=== PATIENT | male | born 1965 | race Caucasian/White ===

== ENCOUNTER → 2016-11-16 | Outpatient (CLI) | payer OTHER ==
[~2016-11-16] MED LIST: GLUCTAB7; KFL500 PO; MULT-513 PO; OMEP20CA9 PO; SULF800T23 PO
--- NOTE | 2016-11-16 08:34 | DIAGNOSTIC IMAGING REPORT ---
(BARIUM SWALLOW) ESOPHAGUS CLINICAL HISTORY: 51 years-old Male presenting with DYSPHAGEA. TECHNIQUE: A standard air contrast barium esophagram is performed. Multiple spot images of the esophagus are acquired both upright and prone. COMPARISON: 02/01/2008. FINDINGS: The patient was able to ingest barium and the barium pill without difficulty. Normal esophageal mucosal pattern. No evidence of intrinsic or extrinsic mass lesion. Deep penetration to the level of the vocal folds. This did not elicit a spontaneous cough. The gastroesophageal junction distended normally. Evidence of gastroesophageal reflux. Fluoroscopy time: 1 minute. Fluoroscopic images: 25. IMPRESSION: 1. Gastroesophageal reflux. 2. Silent deep penetration. Further evaluation with dedicated barium swallow study recommended. Electronically signed by: Loco Marina M.D. 11/16/2016 7:50 AM Dictated Date/Time: 11/16/2016 7:48 AM
== END | disposition home or self-care (01) ==
LOC: C.RAD 07:16
PROVIDERS: ATTEND Nurse Practitioner Family
DX: R13.10 Dysphagia, unspecified (principal); K21.9 Gastro-esophageal reflux disease without esophagitis; R93.3 Abnormal findings on diagnostic imaging of other parts of digestive tract

== ENCOUNTER 2019-12-21 01:50 | Observation (INO) ==
[2019-12-21] MEDS ORDERED: KETOROLAC TROMETHAMINE 15 MG/ML VIAL IV STA (02:11)
--- NOTE | 2019-12-21 02:13 | Emergency Department Note ---
History of Present Illness General Chief complaint: Chest/Rib Injury Stated complaint: SHARP PAIN IN ABD/RIB Time Seen by Provider: 12/21/19 01:59 Source: patient Mode of arrival: ambulatory Limitations: no limitations History of Present Illness Maximum Pain Intensity: 7 This patient is a 54-year-old male who presents to the emergency department for evaluation of right-sided rib pain. The patient reports that his pain started about 1 day ago and gradually worsened. He reports the pain is in the right ribs and he states he has only mild pain at rest rated a 1/10. He states that his pain worsened significantly with a deep breath, certain movements and laying back flat. He rates his discomfort a 7/10 at its worst. He took Excedrin prior to arrival which did help slightly. He denies any shortness of breath, fevers, cough, nausea or vomiting. He is not a smoker and denies recent travel. He denies any leg pain or calf swelling. He denies any history of similar symptoms. He denies any personal or family history of blood clots. Home Medications Home Medications Medication Instructions Recorded Confirmed Type glucosamine-chondroitin [Osteo 1 tab PO DAILY 12/21/19 12/21/19 History Bi-Flex] multivitamin 1 tab PO DAILY 12/21/19 12/21/19 History omeprazole 20 mg PO DAILY 12/21/19 12/21/19 History Allergies Allergy/AdvReac Type Severity Reaction Status Date / Time No Known Allergies Allergy Verified 12/21/19 02:26 Past Med/Surg History Medical History No significant past medical history Surgical History History of appendectomy Social History Smoking Status: Never smoker Preferred Language: Ethiopian Feels Safe at Home: Yes Review of Systems A total of 10 systems reviewed and were otherwise negative Physical Exam Vital Signs Vital Signs - 24 hr 12/21/19 01:55 12/21/19 02:14 12/21/19 02:22 Temperature 37.2 C Temperature Source Oral Pulse Rate 83 79 Pulse Rate from SpO2 Sensor 80 Pulse Rhythm Regular Pulse Strength Normal Respiratory Rate 20 25 H Respiratory Effort / Characteristics Non-Labored Spontaneous Respiratory Depth Normal Respiratory Pattern Regular Blood Pressure 153/83 H 130/85 Blood Pressure Mean 106 92 Blood Pressure Position Sitting Pulse Oximetry 93 95 95 Oxygen Delivery Method Room Air Room Air Sepsis Recent Fever Within 48 Hours No Sepsis New/Unexplained Change in Mental Status No Sepsis Action Taken by Nursing No Action Required 12/21/19 02:31 12/21/19 03:30 12/21/19 04:00 Temperature Temperature Source Pulse Rate 89 78 74 Pulse Rate from SpO2 Sensor 89 77 75 Pulse Rhythm Pulse Strength Respiratory Rate 26 H 17 21 Respiratory Effort / Characteristics Respiratory Depth Respiratory Pattern Blood Pressure 136/84 133/85 139/82 Blood Pressure Mean 105 97 95 Blood Pressure Position Pulse Oximetry 96 96 96 Oxygen Delivery Method Sepsis Recent Fever Within 48 Hours Sepsis New/Unexplained Change in Mental Status Sepsis Action Taken by Nursing 12/21/19 05:06 Temperature Temperature Source Pulse Rate 81 Pulse Rate from SpO2 Sensor 79 Pulse Rhythm Pulse Strength Respiratory Rate 24 Respiratory Effort / Characteristics Respiratory Depth Respiratory Pattern Blood Pressure 134/89 Blood Pressure Mean 96 Blood Pressure Position Pulse Oximetry 97 Oxygen Delivery Method Sepsis Recent Fever Within 48 Hours Sepsis New/Unexplained Change in Mental Status Sepsis Action Taken by Nursing VITALS: Vitals are noted on the nurse's note and reviewed by myself. GENERAL: This is a 54-year-old male, in no acute distress, slightly clammy, well-developed well-nourished. SKIN: The skin was without rashes, erythema, edema, or bruising. EARS: External auditory canals clear, tympanic membranes pearly mckinney without erythema or effusion bilaterally. EYES: Pupils equal round and reactive to light and accommodation. MOUTH: Mucous membranes moist. Tonsils are not enlarged. Pharynx without erythema or exudate. NECK: Supple without nuchal rigidity. No lymphadenopathy. HEART: Regular rate and rhythm without murmurs gallops or rubs. LUNGS: Clear to auscultation bilaterally without wheezes, rales or rhonchi. No retractions or accessory muscle use. ABDOMEN: Positive bowel sounds x 4. Soft, nontender to palpation. No guarding or rebound tenderness. MUSCULOSKELETAL: No deformities, no tenderness. Full range of motion throughout. NEURO: Patient was alert and oriented to person place and time. Course Reevaluation(s) Reevaluation #1: Patient was reevaluated and labs discussed. He reports some relief from the Toradol. Reevaluation #2: Patient was reevaluated and findings discussed. He is agreeable to admission. Consultations Consultation #1: Dr. Bruce [facility] hospitalist Administered Medications Heparin Sodium/Dextrose (Heparin Sodium/Dextrose) 25,000 units in 500 mls @ 26 mls/hr IV .[id number] BING; Protocol Stop: 01/20/20 04:14 Last Admin: 12/21/19 04:58 Dose: 1,300 units/hr, 26 mls/hr Documented by: [id number] Cosigned by: [id number] Discontinued Medications Heparin Sodium (Porcine) (Heparin Bolus Ed Use Only) 5,000 units IV NOW ONE Stop: 12/21/19 04:31 Last Admin: 12/21/19 04:57 Dose: 5,000 units Documented by: [id number] Cosigned by: [id number] Heparin Sodium/Dextrose (Heparin Iv Standard With Bolus) 1 ea IV NOW STA; Protocol Stop: 12/21/19 04:06 Last Admin: 12/21/19 05:02 Dose: Not Given Documented by: [id number] Ioversol (Optiray 320 125ml) 125 ml IV ONCE ONE Stop: 12/21/19 03:17 Last Admin: 12/21/19 03:17 Dose: 119 ml Documented by: [id number] Ketorolac Tromethamine (Ketorolac Tromethamine 15 Mg/Ml Vial) 15 mg IV NOW STA Stop: 12/21/19 02:12 Last Admin: 12/21/19 02:33 Dose: 15 mg Documented by: [id number] Critical Care Time Critical Care Time: Yes Total Critical Care Time: 35 I have personally spent greater than 35 minutes of critical care time in the direct management of this patient. This includes bedside care, interpretation of diagnostic studies, and testing, discussion with consultants, patient, and family members, and other required patient management activities. This 35 minutes is in excess of all separately billable procedures. Medical Decision Making Differential Diagnosis Differential diagnosis includes acute coronary syndrome, pulmonary embolism, pneumothorax, pericarditis, myocarditis, endocarditis, anxiety, musculoskeletal pain, GERD, costochondritis, pneumonia, among others. Home Medications Current Medication List: was personally reviewed by me Laboratory Data Attestation: I reviewed the patient's lab results. Result diagrams: 12/21/19 02:20 12/21/19 02:20 Lab Results 12/21/19 12/21/19 12/21/19 Range/Units 02:20 02:20 02:20 WBC 12.08 H (4.8-10.8) K/uL RBC 4.41 L (4.7-6.1) M/uL Hgb 13.3 L (14.0-18.0) g/dL Hct 38.6 L (42-52) % MCV 87.5 (80-100) fL MCH 30.2 (25-34) pg MCHC 34.5 (32-36) g/dL RDW Std Deviation 40.4 (36.4-46.3) fL RDW Coeff of [place] 12.5 (11.5-14.5) % Plt Count 296 (130-400) K/uL MPV 9.3 (7.4-10.4) fL Immature Gran % (Auto) 0.2 % Neut % (Auto) 76.9 % Lymph % (Auto) 9.3 % Foster % (Auto) 13.0 % Eos % (Auto) 0.5 % Baso % (Auto) 0.1 % Neut # (Auto) 9.29 H (1.4-6.5) K/uL Lymph # (Auto) 1.12 L (1.2-3.4) K/uL Foster # (Auto) 1.57 H (0.11-0.59) K/uL Eos # (Auto) 0.06 (0-0.5) K/uL Baso # (Auto) 0.01 (0-0.2) K/uL Immature Gran # (Auto) 0.03 H (0.00-0.02) K/uL PT (9.0-12.0) Seconds INR (0.9-1.1) APTT (21.0-31.0) Seconds PTT Ratio D-Dimer 910 H* (0-500) ug/L FEU Sodium 138 (136-145) mmol/L Potassium 3.9 (3.5-5.1) mmol/L Chloride 106 (98-107) mmol/L Carbon Dioxide 24 (21-32) mmol/L Anion Gap 8.0 (3-11) BUN 12 (7-18) mg/dl Creatinine 0.73 (0.6-1.4) mg/dl Est Cr Clr Drug Dosing 116.9 ml/min Est GFR ( Amer) 121.0 Est GFR (Non-Af Amer) 104.4 BUN/Creatinine Ratio 16.1 (10-20) Glucose 121 H (70-99) mg/dl Calcium 9.0 (8.5-10.1) mg/dl Total Bilirubin 0.5 (0.2-1) mg/dl AST 22 (15-37) U/L ALT 36 (12-78) U/L Alkaline Phosphatase 60 (45-117) U/L Troponin I < 0.015 (0-0.045) ng/ml Total Protein 7.2 (6.4-8.2) gm/dl Albumin 3.5 (3.4-5.0) gm/dl Globulin 3.7 (2.5-4.0) gm/dl Albumin/Globulin Ratio 0.9 (0.9-2) Lipase 106 (73-393) U/L Urine Color Urine Appearance (Clear) Urine pH (4.5-7.5) Ur Specific [place] (1.000-1.030) Urine Protein (Negative) Urine Glucose (UA) (Negative) Urine Ketones (Negative) Urine Blood (Negative) Urine Nitrite (Negative) Urine Bilirubin (Negative) Urine Urobilinogen (Negative) Ur Leukocyte Esterase (Negative) 12/21/19 12/21/19 Range/Units 02:20 02:35 WBC (4.8-10.8) K/uL RBC (4.7-6.1) M/uL Hgb (14.0-18.0) g/dL Hct (42-52) % MCV (80-100) fL MCH (25-34) pg MCHC (32-36) g/dL RDW Std Deviation (36.4-46.3) fL RDW Coeff of [place] (11.5-14.5) % Plt Count (130-400) K/uL MPV (7.4-10.4) fL Immature Gran % (Auto) % Neut % (Auto) % Lymph % (Auto) % Foster % (Auto) % Eos % (Auto) % Baso % (Auto) % Neut # (Auto) (1.4-6.5) K/uL Lymph # (Auto) (1.2-3.4) K/uL Foster # (Auto) (0.11-0.59) K/uL Eos # (Auto) (0-0.5) K/uL Baso # (Auto) (0-0.2) K/uL Immature Gran # (Auto) (0.00-0.02) K/uL PT 10.2 (9.0-12.0) Seconds INR 1.0 (0.9-1.1) APTT 32.4 H (21.0-31.0) Seconds PTT Ratio 1.2 D-Dimer (0-500) ug/L FEU Sodium (136-145) mmol/L Potassium (3.5-5.1) mmol/L Chloride (98-107) mmol/L Carbon Dioxide (21-32) mmol/L Anion Gap (3-11) BUN (7-18) mg/dl Creatinine (0.6-1.4) mg/dl Est Cr Clr Drug Dosing ml/min Est GFR ( Amer) Est GFR (Non-Af Amer) BUN/Creatinine Ratio (10-20) Glucose (70-99) mg/dl Calcium (8.5-10.1) mg/dl Total Bilirubin (0.2-1) mg/dl AST (15-37) U/L ALT (12-78) U/L Alkaline Phosphatase (45-117) U/L Troponin I (0-0.045) ng/ml Total Protein (6.4-8.2) gm/dl Albumin (3.4-5.0) gm/dl Globulin (2.5-4.0) gm/dl Albumin/Globulin Ratio (0.9-2) Lipase (73-393) U/L Urine Color Yellow Urine Appearance Clear (Clear) Urine pH 5.5 (4.5-7.5) Ur Specific [place] 1.007 (1.000-1.030) Urine Protein Negative (Negative) Urine Glucose (UA) Negative (Negative) Urine Ketones Trace H (Negative) Urine Blood Negative (Negative) Urine Nitrite Negative (Negative) Urine Bilirubin Negative (Negative) Urine Urobilinogen Negative (Negative) Ur Leukocyte Esterase Negative (Negative) Imaging Data Attestation: I personally reviewed and interpreted this imaging study as follows: Radiologist's Impression: CTA CHEST: Acute segmental and subsegmental pulmonary emboli lateral basal right lower lobe. Subpleural pulmonary infarct in the distribution of the embolism. No evidence of right heart strain. Small right pleural effusion. Mild right basilar atelectasis. No pneumothorax. No thoracic aortic aneurysm. No cardiomegaly. No pericardial effusion. No acute osseous findings. CT ABDOMEN & PELVIS With Contrast: Liver, gallbladder, spleen, pancreas, and adrenal glands are unremarkable. Symmetric renal enhancement. No hydronephrosis. Right kidney cysts. Appendix not identified. No bowel obstruction. Some fecalized small bowel contents suggesting slow GI transit/stasis. Urinary bladder and prostate are normal. No acute osseous findings. Radiologist: Juan Mendoza M.D. ECG Data Attestation: I personally reviewed and interpreted this ECG as follows: Indication: + chest pain Rate (beats per minute): 72 Rhythm: + normal sinus ECG Intervals/blocks: + Normal QRS ECG ST segments: + Normal ST segments Comparison ECG Date: no prior available Blood Pressure Blood Pressure Findings: Normal blood pressure MDM Narrative Continuous electrical design engineer: Order was placed for continuous electrical design engineer. Patient was placed on the electrical design engineer. Patient was noted to be in normal sinus rhythm at an initial rate of 72 bpm. The patient is a 54-year-old male who presents today complaining of right-sided rib pain, worse with deep inspiration. Labs revealed minimal leukocytosis of 12,000, mild anemia with hemoglobin 13.3. There were no concerning electrolyte abnormalities. D-dimer was found to be elevated at 910. CT angiogram of the chest was then performed which did show evidence of segmental and subsegmental PEs with a pulmonary infarct. Patient has no significant risk factors for PE. Lower extremity ultrasounds were ordered as well as hypercoagulability studies. Patient received IV Toradol for pain. He was started on heparin and admitted to the [facility] service for further care. Impression & Plan Pulmonary embolism Discharge Plan Visit Data Chief Complaint: Chest/Rib Injury Stated Complaint: SHARP PAIN IN ABD/RIB ED Provider: Thom Hassan ED Midlevel Provider: Crystal Gilmore Discharge Problem: Pulmonary embolism Forms Stand Alone Forms: My [facility] Prescriptions Prescriptions: No Action multivitamin Tablet 1 tab PO DAILY RF: 0 glucosamine-chondroitin [Osteo Bi-Flex] 250-200 mg Tablet 1 tab PO DAILY RF: 0 omeprazole 20 mg Tablet,Delayed Release (Dr/Ec) 20 mg PO DAILY RF: 0 Discharge Problem: Pulmonary embolism Qualifiers: Pulmonary embolism type: unspecified Chronicity: acute Acute cor pulmonale presence: without acute cor pulmonale Qualified Code(s): I26.99 - Other pulmonary embolism without acute cor pulmonale
[2019-12-21 02:32] LABS: Basophils # (auto) 0.01 K/uL (0-0.2); Basophils % (auto) 0.1 %; Eosinophils # (auto) 0.06 K/uL (0-0.5); Eosinophils % (auto) 0.5 %; Hematocrit (blood only) 38.6 % (42-52); Hemoglobin 13.3 g/dL (14.0-18.0); Immature Granulocytes # (auto) 0.03 K/uL (0.00-0.02); Immature Granulocytes % (auto) 0.2 %; Lymphocytes # (auto) 1.12 K/uL (1.2-3.4); Lymphocytes % (auto) 9.3 %; Mean Corpuscular Hemoglobin 30.2 pg (25-34); Mean Corpuscular Hgb Conc 34.5 g/dL (32-36); Mean Corpuscular Volume 87.5 fL (80-100); Mean Platelet Volume 9.3 fL (7.4-10.4); Monocytes # (auto) 1.57 K/uL (0.11-0.59); Neutrophils # (auto) 9.29 K/uL (1.4-6.5); Neutrophils % (auto) 76.9 %; Platelet Count 296 K/uL (130-400); RDW Coefficient of Variation 12.5 % (11.5-14.5); RDW Standard Deviation 40.4 fL (36.4-46.3); Red Blood Count 4.41 M/uL (4.7-6.1); White Blood Count 12.08 K/uL (4.8-10.8)
[2019-12-21 02:45] LABS: Appearance Urine Clear (Clear); Bilirubin Urine Negative (Negative); Blood Urine Negative (Negative); Color Urine Yellow; Glucose Urine UA Negative (Negative); Ketones Urine Trace (Negative); Leukocyte Esterase Urine Negative (Negative); Nitrite Urine Negative (Negative); Protein Urine Negative (Negative); Specific Gravity Urine 1.007 (1.000-1.030); Urobilinogen Urine Negative (Negative); pH Urine 5.5 (4.5-7.5)
[2019-12-21 02:49] LABS: D Dimer 910 ug/L FEU (0-500)
[2019-12-21 02:52] LABS: Alanine Aminotransferase 36 U/L (12-78); Albumin Level 3.5 gm/dl (3.4-5.0); Aspartate Aminotransferase 22 U/L (15-37); BUN Creatinine Ratio 16.1 (10-20); Blood Urea Nitrogen 12 mg/dl (7-18); Carbon Dioxide 24 mmol/L (21-32); Chloride 106 mmol/L (98-107); Creatinine Clr Calc Pharmacy 116.9 ml/min; Est GFR (Non-African American) 104.4; Glucose 121 mg/dl (70-99); Lipase 106 U/L (73-393); Potassium 3.9 mmol/L (3.5-5.1); Sodium 138 mmol/L (136-145)
[2019-12-21 02:57] LABS: Albumin Globulin Ratio 0.9 (0.9-2); Alkaline Phosphatase 60 U/L (45-117); Bilirubin,Total 0.5 mg/dl (0.2-1); Globulin 3.7 gm/dl (2.5-4.0); Total Protein 7.2 gm/dl (6.4-8.2); Troponin I < 0.015 ng/ml (0-0.045)
[2019-12-21] MEDS ORDERED: OPTIRAY 320 125ml IV ONE (03:16)
[2019-12-21] MEDS ORDERED: HEPARIN SODIUM/DEXTROSE 25,000 UNITS/500 ML BAG IV SCH (04:15)
[2019-12-21] MEDS ORDERED: Heparin BOLUS **ED Use Only IV ONE (04:30)
[2019-12-21 04:33] LABS: Partial Thromboplastin Ratio 1.2; Partial Thromboplastin Time 32.4 Seconds (21.0-31.0); Prothrombin Time 10.2 Seconds (9.0-12.0)
[2019-12-21] MEDS ORDERED: OXYCODONE HCL IR 5 MG TAB (IMMEDIATE RELEASE) PO PRN (06:09)
[2019-12-21] MEDS ORDERED: POLYETHYLENE (MIRALAX) 17 GM PACK PO PRN (06:09)
[2019-12-21] MEDS ORDERED: ONDANSETRON INJ 2 MG/ML 2 ML VIAL IV PRN (06:09)
[2019-12-21] MEDS ORDERED: NITROGLYCERIN SL 0.4 MG/TAB TAB SL PRN (06:09)
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
[2019-12-21] MEDS: SODIUM CHLORIDE 0.9% 1000ML 1,000 ML IV SCH ×2 (06:23→18:25)
--- NOTE | 2019-12-21 06:47 | XRay Report ---
XR chest 1V portable HISTORY: 54 years-old Male right sided chest pain acute atypical right-sided chest pain COMPARISON: Chest radiograph 01/07/2014, CTA chest 12/21/2019 TECHNIQUE: Portable AP view of the chest FINDINGS: Cardiomediastinal and hilar silhouettes are within normal limits. Small right pleural effusion with r ight lung base opacities. No overt pulmonary edema or pneumothorax. The left lung is clear. The bones appear grossly intact. IMPRESSION: Small right pleural effusion with right lung base opacities suggestive of atelectasis/dev eloping pulmonary infarct secondary to pulmonary emboli as described on CTA chest of same day. ACT 112: Negative or not required by law. The above report was generated using voice recognition software. It may contain grammatical, syntax o r spelling errors. Electronically signed by: Kb Lundy M.D. 12/21/2019 6:46 AM
--- NOTE | 2019-12-21 06:50 | Ultrasound Report ---
BILATERAL LOWER EXTREMITY VENOUS DOPPLER HISTORY: Acute pain and swelling of the right lower extremity PE COMPARISON STUDY: Duplex venous Doppler study 01/09/2014 FINDINGS: There is normal compressibility, flow, and augmentation within the bilateral lower extremit y deep venous systems. IMPRESSION: No DVT within the right or left lower extremity. ACT 112: Negative or not required by law. Electronically signed by: Kb Lundy M.D. 12/21/2019 6:49 AM
--- NOTE | 2019-12-21 07:37 | CT Scan Report ---
ABDOMEN AND PELVIS CT WITH IV CONTRAST HISTORY: Elevated d-dimer with right-sided chest pain elevated dimer, right rib/upper abdominal pain TECHNIQUE: Multiaxial CT images of the abdomen and pelvis were performed following the IV administrat ion of 119 cc of Optiray 320, A dose lowering technique was utilized adhering to the principles of A TERE. COMPARISON STUDY: CTA chest of same day FINDINGS: Small right pleural effusion. 3.9 cm pulmonary infarct the lateral basal segment right lower lobe wit h right lung base atelectasis. Pulmonary emboli are better characterized on CTA chest of same day. Cl ear left lung base. No pneumatosis or pneumoperitoneum. The imaged inferior cardiac chambers are unre markable. Spleen, pancreas, adrenal glands and gallbladder are unremarkable. 5 mm hypodensity of the inferior r ight hepatic lobe suggestive of a probable cyst. Liver is otherwise unremarkable. Patency of the hepa tic and portal veins. Cyst of the superior pole right kidney, 2.6 cm. No hydronephrosis. Unremarkable urinary bladder and prostate. There is no aortic aneurysm. No adenopathy. No bowel obstruction or bowel wall thickening. There is moderate fecal retention. Stool-filled loops of ileum are noted within the lower abdomen and pelvis. Appendectomy. Soft tissues are unremarkable. Chondrocalcinosis of the hips. Mild degenerative changes of the spine, pelvis and hips. The bones brooke ear intact. IMPRESSION: 1. Right lower lobe pulmonary emboli are better characterized on CTA chest of same day. Small right p leural effusion with right lower lobe pulmonary infarct and atelectasis. 2. No bowel obstruction or bowel wall thickening 3. Moderate fecal retention with stool-filled loops of ileum suggestive of decreased small bowel diaz sit. ACT 112: Negative or not required by law. The above report was generated using voice recognition software. It may contain grammatical, syntax o r spelling errors. Electronically signed by: Kb Lundy M.D. 12/21/2019 7:36 AM
--- NOTE | 2019-12-21 07:50 | CT Scan Report ---
CHEST CTA for PULMONARY ARTERIES CT DOSE: 591.73 mGy.cm HISTORY: elevated dimer, right rib/upper abdominal pain TECHNIQUE: Multiaxial CT images of the chest were performed following the intravenous administration of contrast to evaluate the pulmonary arteries. Maximal intensity projection images were also obtaine d. A dose lowering technique was utilized adhering to the principles of ALARA. COMPARISON STUDY: None. FINDINGS: The right lower lobe segmental/subsegmental pulmonary emboli. No additional pulmonary ident ified. Small right pleural effusion. The heart is normal in size. Normal caliber thoracic aorta with no evidence for dissection. No mediastinal or hilar lymphadenopathy. No fractures within the visualiz ed osseous structures. No pneumothorax. The central airways are patent. Peripheral groundglass consol idation within the base of the right lower lobe consistent with a pulmonary infarct. Mild respiratory motion artifact is noted. IMPRESSION: 1. Right lower lobe pulmonary emboli with associated small peripheral pulmonary infarct and a small r ight pleural effusion. 2. No evidence for an aortic dissection. ACT 112: Negative or not required by law. Electronically signed by: Harvey Dickinson M.D. 12/21/2019 7:49 AM
[2019-12-21] MEDS: MULTIVITAMIN TAB PO SCH (07:57)
[2019-12-21] MEDS: PANTOprazole 40 MG TAB PO SCH (07:57)
[2019-12-21] MEDS ORDERED: NON-FORMULARY MEDICATION (Glucosamine-Chondroitin [Osteo Bi-Flex] 1 TAB) PO SCH (09:00)
[2019-12-21] MEDS: ENOXAPARIN 80 MG/0.8 ML SYR SQ SCH ×2 (11:26→22:30)
[2019-12-21 11:48] LABS: Partial Thromboplastin Time 55.3 Seconds (21.0-31.0)
--- NOTE | 2019-12-21 12:45 | Hospitalist Progress Note ---
Date of Service December 21, 2019 Assessment & Plan (1) Pulmonary embolism: Presented with cough with pleuritic chest pain 1 day prior to admission CT scan revealed right lower lobe pulmonary emboli with associated small peripheral pulmonary infarct and a small right pleural effusion No provoking factors for pulmonary embolism and No DVTs in lower extremities Received intravenous heparin and after long discussion with the patient, Coumadin has been started from today Heparin are changed to Lovenox and the patient will be discharged tomorrow Hypercoagulable work-up has been sent from the ER He has a remote family history of hypercoagulable state He will have anticoagulation for 3 to 6 months if hypercoagulable work-up is negative He will be seen by hematology as an outpatient Admission and Anticipated Discharge Date Admission Date: December 21, 2019 Subjective 12/21/2019 Patient was seen and examined in medical telemetry unit He was admitted with right-sided chest pain with deep breathing 1 day prior to admission He was noted to have right lower lobe segmental/subsegmental pulmonary emboli with minor infarct Still has some pain with deep breathing Denies any other symptoms Review of Systems Review of Systems: All systems reviewed and are unremarkable except as noted below Respiratory: + cough, + pain on inspiration and + pain with cough; no hemoptysis Cardiovascular: no chest pain Physical Exam Physical Exam: Lying in bed comfortably Constitutional: well developed and well nourished; no acute distress and not ill appearing Eyes: PERRL, conjunctivae normal, anicteric sclerae ENMT: external ear and nose normal, oropharynx normal Neck: trachea midline, no thyromegaly Respiratory: normal respiratory effort and + cough; no respiratory distress Auscultation: lungs clear to auscultation bilaterally; no pleural rub Cardiovascular: Rate/Rhythm: regular rate and regular rhythm Heart Sounds: no murmur Gastrointestinal (Abdomen): Inspection/Auscultation: abdomen normal to inspection and normal bowel sounds; abdomen not distended Percussion/Palpation: abdomen soft Musculoskeletal: No acute arthritis involving any joints Neurologic: moves all extremities; no focal motor deficits Psychiatric: A+Ox3, euthymic affect Lymphatic: no cervical or axillary lymphadenopathy Results & Data Results & Data ([facility]) Vital Signs (Past 12 Hours) Vital Signs Temp Pulse Pulse Resp BP BP Pulse Ox 12/21/19 11:45 37.3 C 88 18 134/86 94 09/03/20 07:54 36.7 C 76 18 134/88 97 12/21/19 06:27 72 12/21/19 06:12 37 C 72 18 158/90 H 100 12/21/19 05:30 71 23 134/89 98 12/21/19 05:06 81 24 134/89 97 12/21/19 04:00 74 21 139/82 96 12/21/19 03:30 78 17 133/85 96 12/21/19 02:31 89 26 H 136/84 96 12/21/19 02:22 79 25 H 130/85 95 12/21/19 02:14 95 12/21/19 01:55 37.2 C 83 20 153/83 H 93 Laboratory Results Short CBC 12/21/19 Range/Units 02:20 WBC 12.08 H (4.8-10.8) K/uL Hgb 13.3 L (14.0-18.0) g/dL Hct 38.6 L (42-52) % Plt Count 296 (130-400) K/uL BMP 12/21/19 02:20 Sodium 138 Potassium 3.9 Chloride 106 Carbon Dioxide 24 BUN 12 Creatinine 0.73 Glucose 121 H Calcium 9.0 Cardiac Enzymes 12/21/19 Range/Units 02:20 Troponin I < 0.015 (0-0.045) ng/ml Liver Function 12/21/19 Range/Units 02:20 Total Bilirubin 0.5 (0.2-1) mg/dl AST 22 (15-37) U/L ALT 36 (12-78) U/L Alkaline Phosphatase 60 (45-117) U/L Albumin 3.5 (3.4-5.0) gm/dl Urine 12/21/19 Range/Units 02:35 Urine Color Yellow Urine Appearance Clear (Clear) Urine pH 5.5 (4.5-7.5) Ur Specific [place] 1.007 (1.000-1.030) Urine Protein Negative (Negative) Urine Glucose (UA) Negative (Negative) Medications Administered Current Inpatient Medications Acetaminophen (Acetaminophen 325 Mg Tab) 650 mg PO Q4H PRN PRN Reason: Pain or Fever Stop: 01/20/20 06:08 Enoxaparin Sodium (Enoxaparin 80 Mg/0.8 Ml Syr) 80 mg SQ Q12H BING Stop: 01/20/20 10:59 Last Admin: 12/21/19 11:26 Dose: 80 mg Documented by: Sodium Chloride (Nss 1000ml) 1,000 mls @ 75 mls/hr IV .[id number] [facility] Stop: 12/22/19 07:00 Last Admin: 12/21/19 06:23 Dose: 75 mls/hr Documented by: Multivitamins (Multivitamin Tab) 1 tab PO DAILY BING Stop: 01/20/20 08:59 Last Admin: 12/21/19 07:57 Dose: 1 tab Documented by: Nitroglycerin (Nitroglycerin Sl 0.4 Mg/Tab Tab) 0.4 mg SL UD PRN PRN Reason: Chest Pain Stop: 01/20/20 06:08 Ondansetron HCl (Ondansetron Inj 2 Mg/Ml 2 Ml Vial) 4 mg IV Q6H PRN PRN Reason: Nausea Stop: 01/20/20 06:08 Oxycodone HCl (Oxycodone Hcl Ir 5 Mg Tab (Immediate Release)) 5 mg PO Q4H PRN PRN Reason: Pain Stop: 01/04/20 06:08 Pantoprazole Sodium (Pantoprazole 40 Mg Tab) 40 mg PO DAILY BING Stop: 01/20/20 08:59 Last Admin: 12/21/19 07:57 Dose: 40 mg Documented by: Polyethylene Glycol (Polyethylene (Miralax) 17 Gm Pack) 17 gm PO DAILY PRN PRN Reason: Constipation Stop: 01/20/20 06:08 Warfarin Sodium (Warfarin Sod 7.5 Mg Tab) 7.5 mg PO DAILY@1600 [facility] Stop: 01/20/20 15:59 (1) Pulmonary embolism Acute cor pulmonale presence: without acute cor pulmonale Chronicity: acute Pulmonary embolism type: unspecified Qualified Code(s): I26.99 - Other pulmonary embolism without acute cor pulmonale
[2019-12-21] MEDS: WARFARIN SOD 7.5 MG TAB PO SCH (16:57)
[2019-12-21] MEDS: ACETAMINOPHEN 325 MG TAB PO PRN (18:43)
[2019-12-22 05:33] LABS: Basophils # (auto) 0.02 K/uL (0-0.2); Basophils % (auto) 0.2 %; Eosinophils % (auto) 1.1 %; Hematocrit (blood only) 36.3 % (42-52); Hemoglobin 12.1 g/dL (14.0-18.0); Immature Granulocytes # (auto) 0.02 K/uL (0.00-0.02); Immature Granulocytes % (auto) 0.2 %; Lymphocytes # (auto) 1.65 K/uL (1.2-3.4); Lymphocytes % (auto) 17.5 %; Mean Corpuscular Hemoglobin 29.5 pg (25-34); Mean Corpuscular Hgb Conc 33.3 g/dL (32-36); Mean Corpuscular Volume 88.5 fL (80-100); Mean Platelet Volume 9.4 fL (7.4-10.4); Monocytes # (auto) 1.27 K/uL (0.11-0.59); Monocytes % (auto) 13.5 %; Neutrophils # (auto) 6.38 K/uL (1.4-6.5); Neutrophils % (auto) 67.5 %; Platelet Count 304 K/uL (130-400); RDW Coefficient of Variation 12.5 % (11.5-14.5); RDW Standard Deviation 40.1 fL (36.4-46.3); White Blood Count 9.44 K/uL (4.8-10.8)
[2019-12-22 05:43] LABS: Prothrombin Time 10.4 Seconds (9.0-12.0)
[2019-12-22 06:08] LABS: BUN Creatinine Ratio 20.7 (10-20); Calcium 8.6 mg/dl (8.5-10.1); Creatinine Clr Calc Pharmacy 132.6 ml/min; Est GFR (African American) 126.9; Est GFR (Non-African American) 109.5; Magnesium 1.9 mg/dl (1.8-2.4)
--- NOTE | 2019-12-22 06:30 | Electrocardiogram Report ---
Test Reason : Blood Pressure : / mmHG Vent. Rate : 072 BPM Atrial Rate : 072 BPM P-R Int : 148 ms QRS Dur : 094 ms QT Int : 376 ms P-R-T Axes : 038 058 041 degrees QTc Int : 411 ms Normal sinus rhythm Cannot rule out Anterior infarct , age undetermined Abnormal ECG No previous ECGs available Confirmed by Codey Brito ([id number]) on 12/22/2019 6:29:50 AM Referred By: REFERRED SELF Confirmed By:Codey Brito
[2019-12-22] MEDS: MULTIVITAMIN TAB PO SCH (07:45)
[2019-12-22] MEDS: PANTOprazole 40 MG TAB PO SCH (07:45)
[2019-12-22] MEDS: ACETAMINOPHEN 325 MG TAB PO PRN (09:43)
[2019-12-22] MEDS: ENOXAPARIN 80 MG/0.8 ML SYR SQ SCH ×2 (10:58→22:26)
--- NOTE | 2019-12-22 12:47 | Hospitalist Progress Note ---
Date of Service December 22, 2019 Assessment & Plan (1) Pulmonary embolism: Presented with cough with pleuritic chest pain 1 day prior to admission CT scan revealed right lower lobe pulmonary emboli with associated small peripheral pulmonary infarct and a small right pleural effusion No provoking factors for pulmonary embolism and No DVTs in lower extremities Received intravenous heparin and after long discussion with the patient, Coumadin has been started from today Heparin are changed to as advised and the patient will be discharged tomorrow Remains reasonably stable and still has some pain at the back of the chest with deep breathing Not yet sure whether he can go home today and take Lovenox as advised Hypercoagulable work-up has been sent from the ER He has a remote family history of hypercoagulable state He will have anticoagulation for 3 to 6 months if hypercoagulable work-up is negative He will be seen by hematology as an outpatient Admission and Anticipated Discharge Date Admission Date: December 21, 2019 Subjective 12/21/2019 Patient was seen and examined in medical telemetry unit He was admitted with right-sided chest pain with deep breathing 1 day prior to admission He was noted to have right lower lobe segmental/subsegmental pulmonary emboli with minor infarct Still has some pain with deep breathing Denies any other symptoms 12/22/2019 The patient was seen and examined in medical telemetry unit He still complains to have pain with deep breathing His condition gets worse with activity Denies any cough and/or hemoptysis and no shortness of breath Review of Systems Review of Systems: All systems reviewed and are unremarkable except as noted below Respiratory: + pain on inspiration and + pain with cough; no cough and no hemoptysis Physical Exam Physical Exam: Lying in bed comfortably Constitutional: well developed and well nourished; no acute distress and not ill appearing Eyes: PERRL, conjunctivae normal, anicteric sclerae ENMT: external ear and nose normal, oropharynx normal Neck: trachea midline, no thyromegaly Respiratory: normal respiratory effort; no respiratory distress and no cough Auscultation: lungs clear to auscultation bilaterally and + diminished lung sounds (Due to pain with deep breathing); no pleural rub Cardiovascular: Rate/Rhythm: regular rate and regular rhythm Heart Sounds: no murmur Gastrointestinal (Abdomen): Inspection/Auscultation: abdomen normal to inspection and normal bowel sounds; abdomen not distended Percussion/Pal pation: abdomen soft Musculoskeletal: No acute arthritis involving any joints Neurologic: moves all extremities; no focal motor deficits Psychiatric: A+Ox3, euthymic affect Lymphatic: no cervical or axillary lymphadenopathy Results & Data Results & Data ([facility]) Vital Signs (Past 12 Hours) Vital Signs Temp Pulse Resp BP Pulse Ox 12/22/19 11:07 36.5 C 80 18 152/85 H 99 12/22/19 07:18 37.5 C 82 18 144/80 H 94 12/22/19 03:13 37 C 79 18 146/81 H 93 Laboratory Results Short CBC 12/22/19 Range/Units 04:51 WBC 9.44 (4.8-10.8) K/uL Hgb 12.1 L (14.0-18.0) g/dL Hct 36.3 L (42-52) % Plt Count 304 (130-400) K/uL BMP 12/22/19 04:51 Sodium 139 Potassium 4.0 Chloride 109 H Carbon Dioxide 24 BUN 13 Creatinine 0.65 Glucose 98 Calcium 8.6 Medications Administered Current Inpatient Medications Acetaminophen (Acetaminophen 325 Mg Tab) 650 mg PO Q4H PRN PRN Reason: Pain or Fever Stop: 01/20/20 06:08 Last Admin: 12/22/19 09:43 Dose: 650 mg Documented by: Enoxaparin Sodium (Enoxaparin 80 Mg/0.8 Ml Syr) 80 mg SQ Q12H BING Stop: 01/20/20 10:59 Last Admin: 12/22/19 10:58 Dose: 80 mg Documented by: Multivitamins (Multivitamin Tab) 1 tab PO DAILY BING Stop: 01/20/20 08:59 Last Admin: 12/22/19 07:45 Dose: 1 tab Documented by: Nitroglycerin (Nitroglycerin Sl 0.4 Mg/Tab Tab) 0.4 mg SL UD PRN PRN Reason: Chest Pain Stop: 01/20/20 06:08 Ondansetron HCl (Ondansetron Inj 2 Mg/Ml 2 Ml Vial) 4 mg IV Q6H PRN PRN Reason: Nausea Stop: 01/20/20 06:08 Oxycodone HCl (Oxycodone Hcl Ir 5 Mg Tab (Immediate Release)) 5 mg PO Q4H PRN PRN Reason: Pain Stop: 01/04/20 06:08 Pantoprazole Sodium (Pantoprazole 40 Mg Tab) 40 mg PO DAILY [facility] Stop: 01/20/20 08:59 Last Admin: 12/22/19 07:45 Dose: 40 mg Documented by: Polyethylene Glycol (Polyethylene (Miralax) 17 Gm Pack) 17 gm PO DAILY PRN PRN Reason: Constipation Stop: 01/20/20 06:08 Warfarin Sodium (Warfarin Sod 7.5 Mg Tab) 7.5 mg PO DAILY@1600 [facility] Stop: 01/20/20 15:59 Last Admin: 12/21/19 16:57 Dose: 7.5 mg Documented by: (1) Pulmonary embolism Acute cor pulmonale presence: without acute cor pulmonale Chronicity: acute Pulmonary embolism type: unspecified Qualified Code(s): I26.99 - Other pulmonary embolism without acute cor pulmonale
[2019-12-22] MEDS: WARFARIN SOD 7.5 MG TAB PO SCH (16:04)
[2019-12-23 05:44] LABS: INR 1.1 (0.9-1.1); Prothrombin Time 11.4 Seconds (9.0-12.0)
[2019-12-23] MEDS: PANTOprazole 40 MG TAB PO SCH (07:39)
[2019-12-23] MEDS: MULTIVITAMIN TAB PO SCH (07:39)
[2019-12-23] MEDS: ACETAMINOPHEN 325 MG TAB PO PRN (10:28)
[2019-12-23] MEDS: ENOXAPARIN 80 MG/0.8 ML SYR SQ SCH (10:29)
--- NOTE | 2019-12-23 11:00 | Hospitalist Progress Note ---
Date of Service December 23, 2019 Assessment & Plan (1) Pulmonary embolism: Presented with cough with pleuritic chest pain 1 day prior to admission CT scan revealed right lower lobe pulmonary emboli with associated small peripheral pulmonary infarct and a small right pleural effusion No provoking factors for pulmonary embolism and No DVTs in lower extremities Received intravenous heparin and after long discussion with the patient, Coumadin has been started from today Heparin are changed to as advised and the patient will be discharged tomorrow Remains reasonably stable and still has some pain at the back of the chest with deep breathing He wants to go home today His INR is not yet therapeutic Will need Lovenox to continue with Coumadin and he will be referred to coagulation clinic as an outpatient Hypercoagulable work-up has been sent from the ER He has a remote family history of hypercoagulable state He will have anticoagulation for 3 to 6 months if hypercoagulable work-up is negative He will be seen by hematology as an outpatient Admission and Anticipated Discharge Date Admission Date: December 21, 2019 Subjective 12/21/2019 Patient was seen and examined in medical telemetry unit He was admitted with right-sided chest pain with deep breathing 1 day prior to admission He was noted to have right lower lobe segmental/subsegmental pulmonary emboli with minor infarct Still has some pain with deep breathing Denies any other symptoms 12/22/2019 The patient was seen and examined in medical telemetry unit He still complains to have pain with deep breathing His condition gets worse with activity Denies any cough and/or hemoptysis and no shortness of breath 12/23/2019 The patient was seen and examined in medical telemetry unit He has been feeling a little bit better today Still has some chest pain with deep breathing He has been ambulating well without any significant problems Review of Systems Review of Systems: All systems reviewed and are unremarkable except as noted below Respiratory: + pain on inspiration (Still has some pain with deep inspiration); no cough, no hemoptysis and no pain with cough Physical Exam Physical Exam: Lying in bed comfortably Constitutional: well developed and well nourished; no acute distress and not ill appearing Eyes: PERRL, conjunctivae normal, anicteric sclerae ENMT: external ear and nose normal, oropharynx normal Neck: trachea midline, no thyromegaly Respiratory: normal respiratory effort; no respiratory distress and no cough Auscultation: lungs clear to auscultation bilaterally and + diminished lung sounds (Diminished breath sound right base); no pleural rub Cardiovascular: Rate/Rhythm: regular rate and regular rhythm Heart Sounds: no murmur Gastrointestinal (Abdomen): Inspection/Auscultation: abdomen normal to inspection and normal bowel sounds; abdomen not distended Percussion/Palpation: abdomen soft Neurologic: moves all extremities; no focal motor deficits Psychiatric: A+Ox3, euthymic affect Lymphatic: no cervical or axillary lymphadenopathy Results & Data Results & Data ([facility]) Vital Signs (Past 12 Hours) Vital Signs Temp Pulse Pulse Resp BP BP Pulse Ox 12/23/19 08:00 75 12/23/19 07:11 37.6 C H 93 H 18 150/85 H 92 12/23/19 03:26 83 12/23/19 03:14 37.5 C 80 16 147/84 H 94 12/22/19 23:13 37.7 C H 86 16 151/87 H 95 Medications Administered Current Inpatient Medications Acetaminophen (Acetaminophen 325 Mg Tab) 650 mg PO Q4H PRN PRN Reason: Pain or Fever Stop: 01/20/20 06:08 Last Admin: 12/23/19 10:28 Dose: 650 mg Documented by: Enoxaparin Sodium (Enoxaparin 80 Mg/0.8 Ml Syr) 80 mg SQ Q12H BING Stop: 01/20/20 10:59 Last Admin: 12/23/19 10:29 Dose: 80 mg Documented by: Multivitamins (Multivitamin Tab) 1 tab PO DAILY BING Stop: 01/20/20 08:59 Last Admin: 12/23/19 07:39 Dose: 1 tab Documented by: Nitroglycerin (Nitroglycerin Sl 0.4 Mg/Tab Tab) 0.4 mg SL UD PRN PRN Reason: Chest Pain Stop: 01/20/20 06:08 Ondansetron HCl (Ondansetron Inj 2 Mg/Ml 2 Ml Vial) 4 mg IV Q6H PRN PRN Reason: Nausea Stop: 01/20/20 06:08 Oxycodone HCl (Oxycodone Hcl Ir 5 Mg Tab (Immediate Release)) 5 mg PO Q4H PRN PRN Reason: Pain Stop: 01/04/20 06:08 Pantoprazole Sodium (Pantoprazole 40 Mg Tab) 40 mg PO DAILY BING Stop: 01/20/20 08:59 Last Admin: 12/23/19 07:39 Dose: 40 mg Documented by: Polyethylene Glycol (Polyethylene (Miralax) 17 Gm Pack) 17 gm PO DAILY PRN PRN Reason: Constipation Stop: 01/20/20 06:08 Warfarin Sodium (Warfarin Sod 7.5 Mg Tab) 7.5 mg PO DAILY@1600 BING Stop: 01/20/20 15:59 Last Admin: 12/22/19 16:04 Dose: 7.5 mg Documented by: (1) Pulmonary embolism Acute cor pulmonale presence: without acute cor pulmonale Chronicity: acute Pulmonary embolism type: unspecified Qualified Code(s): I26.99 - Other pulmonary embolism without acute cor pulmonale
--- NOTE | 2019-12-23 11:34 | XRay Report ---
XR chest 2V PA/lateral HISTORY: Cough. Assess for pneumonia. COMPARISON: Chest CTA 12/21/2019. FINDINGS: Small right pleural effusion and right base airspace opacities have slightly progressed. Th e right base airspace opacity likely represents expected evolution of the patient's right lower lobe pulmonary infarct. The left lung is clear. The heart is normal in size. No pneumothorax. IMPRESSION: Slight progression of the small right pleural effusion and right lung base airspace opacities consist ent with the patient's known pulmonary infarct. ACT 112: Negative or not required by law. Electronically signed by: Harvey Dickinson M.D. 12/23/2019 11:33 AM
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
[2019-12-27 07:11] LABS: Anti Cardiolipin Ab IgG <14 GPL; Anti Cardiolipin Ab IgM 31 MPL; Anti-Thrombin III Activity 112 % normal (80-135); B2 Glycoprotein IgG <9 SGU (<=20); B2 Glycoprotein IgM 16 SMU (<=20); PTT LA Screen 60 sec (<=40); Protein S Functional(Activity) 50 % (70-150)
[2019-12-27 12:56] LABS: Lupus Hex Phase (Rflxdonotord) Positive (Negative)
== END 2019-12-23 13:34 | disposition home or self-care (01) ==
LOC: 2N 01:50 → ED 01:50 → 2N 05:48